=== PATIENT | male | born 1990 | race Two or more races ===

== ENCOUNTER 2020-06-27 12:41 | Emergency (ER) | payer BC ==
[~2020-06-27] VITALS: Ht 185.4 cm; Wt 67.1 kg
== END 2020-06-27 17:54 | disposition home or self-care (01) ==
LOC: ER 12:41
DX: A90 Dengue fever [classical dengue] (principal); R55 Syncope and collapse; B34.9 Viral infection, unspecified; Z03.818 Encounter for observation for suspected exposure to other biological agents ruled out